=== PATIENT | male | born 1980 | race African-American/Black ===

== ENCOUNTER 2016-04-24 09:53 | Emergency (ER) | payer OTHER ==
[~2016-04-24] VITALS: Ht 172.7 cm; Wt 76.2 kg
[2016-04-24] MEDS ORDERED: PEN-VEE K,VEET500 MG PO (11:26)
[2016-04-24] MEDS ORDERED: NAPROSYN500 MG PO (11:26)
[2016-04-24] MEDS ORDERED: ULTRAM50 MG PO (11:26)
[2016-04-24 11:41] VITALS: BP 154/82
== END 2016-04-24 11:42 | disposition home or self-care (01) ==
LOC: RME 09:53 → EME 09:53 → RME 11:42
DX: K02.9 Dental caries, unspecified (principal); R51 Headache; K08.89 Other specified disorders of teeth and supporting structures; F17.200 Nicotine dependence, unspecified, uncomplicated
CPT/HCPCS: 99281; 99283